=== PATIENT | male | born 1995 | race Caucasian/White ===

== ENCOUNTER 2024-04-23 19:53 | Emergency (ER) | payer SELFPAY ==
[2024-04-23 19:59] VITALS: BP 160/85
[2024-04-23 20:19] VITALS: BP 144/77
[2024-04-23] MEDS: ATIVAN 1 MG PO (20:57)
[2024-04-23 21:13] LABS: % Basophils 0.9 % (0-2); % Eosinophils 2.6 % (0-6); % Immature Granulocytes 0.1 % (0-0.5); % Lymphocytes 24.6 % (20.5-51.1); % Monocytes 13.5 % (1.7-9.3); % Neutrophils 58.3 % (42.2-75.2); Absolute Basophils 0.1 10^3/uL (0-0.2); Absolute Eosinophils 0.2 10^3/uL (0-0.7); Absolute Lymphocytes 1.7 10^3/uL (1.2-3.4); Absolute Monocytes 0.9 10^3/uL (0.1-0.6); Hematocrit 36.3 % (39.0-52.0); Hemoglobin 11.7 g/dL (13.0-18.0); Mean Corp Hgb Conc. 32.2 g/dL (33.0-37.0); Mean Corpuscular Hgb 18.1 pg (27.0-31.0); Mean Corpuscular Volume 56.2 fL (80.0-94.0); Nucleated Red Blood Cells % 0 % (-); Platelet Count 164 10^3/uL (130-400); Red Blood Cell Count 6.46 10^6/uL (4.70-6.10); Red Cell Dist. Width 17.8 % (11.5-14.5); White Blood Cell Count 6.8 10^3/uL (4.8-10.8)
[2024-04-23 21:57] LABS: ALT (SGPT) 19 U/L (0-50); AST (SGOT) 29 U/L (17-59); Albumin 5.3 g/dl (3.5-5.0); Alkaline Phosphatase 57 U/L (38-126); Blood Urea Nitrogen 14 mg/dl (9-20); Calcium 9.3 mg/dl (8.4-10.2); Carbon Dioxide 22 mmol/L (22-30); Chloride 95 mmol/L (98-107); Creatine Phosphokinase 82 U/L (55-170); Glucose 122 mg/dl (70-99); Magnesium 2.3 mg/dl (1.6-2.3); Potassium 3.8 mmol/L (3.5-5.1); Sodium 133 mmol/L (135-145); Total Bilirubin 2.1 mg/dl (0.2-1.3); eGFR > 60.00
[2024-04-23 23:07] LABS: COVID-19 Antigen Negative (Negative)
[2024-04-23] MEDS: TYLENOL 1000 MG PO (23:38)
--- NOTE | 2024-04-23 23:41 | ED.GENMED ---
History of Present Illness
General
Chief Complaint: Anxiety
Source: patient and family
Exam Limitations: none
Time Seen by Provider: 04/23/24 20:32
History of Present Illness
History of Present Illness:
28-year-old male who presents feeling anxious. Patient states started on Wednesday into Wednesday where he started to feel just like he had a restless leg syndrome. He started get kind of achiness in his leg and felt anxious. He states and admits
that he did do psychedelic mushrooms on . He felt actually pretty okay on and Wednesday but last night into today he is just felt anxious and sleep. Admits that he used to do psychedelics maybe monthly in the past a few years back
but had not done them in a while. He is not sure if he still feeling like he is tripping and coming out of it but he thought he was already coming out of it. Admits he vapes. He did recently get a THC pen. No shortness of breath. No fevers. No
vomiting. He denies any other drug use. Mom states his anxiety has been bad at home.
Past History
Past History
ED Past Medical History: Other (ADHD)
Phy Exam
Physical Exam
Physical Exam:
CONSTITUTIONAL Patient alert and oriented to person, place and time. Well-appearing. Vital signs reviewed.
HEAD atraumatic, normocephalic.
EYES eyelids normal to inspection, Extraocular muscles intact, Conjunctiva normal, Sclera normal.
NECK normal range of motion, Trachea midline, no jugular venous distention.
RESPIRATORY CHEST No respiratory distress noted, Chest expansion equal
BACK normal inspection, no obvious deformities
UPPER EXTREMITY range of motion normal, Motor strength normal, no cyanosis, no edema.
LOWER EXTREMITY range of motion normal, Motor strength normal, no cyanosis, no edema.
NEURO Speech normal, No focal motor deficits, [place] coma scale 15, Memory normal, Cranial Nerves intact to screening exam.
SKIN skin warm, dry, and normal in color.
Course
Orders/Labs/Results
Orders:
Orders
04/23/24 20:55
Add On- LAB Urgent
Tests Added?: CPK
Lorazepam [Ativan] 1 mg PO NOW STA
04/23/24 20:59
Complete Blood Count/With Diff Urgent
Comprehensive Metabolic Panel Urgent
Creatine Phosphokinase Urgent
Comment: ADD ON
Magnesium Urgent
04/23/24 21:00
Add On- LAB Urgent
Tests Added?: Mag
04/23/24 22:31
COVID-19 Antigen Urgent
Source: Nasal Swab
Influenza A+B Rapid Molecular Urgent
KATIA Source: Nasal Swab
Specimen Description:
04/23/24 23:35
Acetaminophen [Tylenol] 1,000 mg .ROUTE .STK-MED ONE
04/23/24 23:38
Acetaminophen [Tylenol] 1,000 mg PO NOW STA
Abnormal Lab Results
04/23/24
20:59
RBC 6.46 H 10^6/uL
(4.70-6.10)
Hgb 11.7 L g/dL
(13.0-18.0)
Hct 36.3 L %
(39.0-52.0)
MCV 56.2 L fL
(80.0-94.0)
MCH 18.1 L pg
(27.0-31.0)
MCHC 32.2 L g/dL
(33.0-37.0)
RDW 17.8 H %
(11.5-14.5)
Absolute Monos (auto) 0.9 H 10^3/uL
(0.1-0.6)
Monocytes % 13.5 H %
(1.7-9.3)
Sodium 133 L mmol/L
(135-145)
Chloride 95 L mmol/L
(98-107)
Glucose 122 H mg/dl
(70-99)
Total Bilirubin 2.1 H mg/dl
(0.2-1.3)
Albumin 5.3 H g/dl
(3.5-5.0)
04/23/24 20:59
04/23/24 20:59
Vital Signs
Initial and Last Documented VS:
Initial Vital Signs
Temp Pulse Resp BP Pulse Ox
97.9 F 106 20 160/85 100
04/23/24 19:59 04/23/24 19:59 04/23/24 19:59 04/23/24 19:59 04/23/24 19:59
Last Documented Vital Signs
Temp Pulse Resp BP Pulse Ox
97.9 F 64 16 144/77 99
04/23/24 19:59 04/23/24 20:19 04/23/24 20:19 04/23/24 20:19 04/23/24 21:00
MDM/Problems Addressed
MDM/Problems Addressed:
Anxiety, recent THC use, recent psychedelic use
*Pulse Oximetry
Patient hypoxic: no
*Critical Care Note
Total Time (30-74mins, 75-104mins- exclusive of procedures): Not Applicable
Data Reviewed
Source: patient and family
Prescriptions/Medications Considered But Not Given:
Considered IV Ativan patient quite stable.
Patient Management
Escalation/DeEscalation of care consider admission/obs:
Labs grossly unremarkable with minor changes. Will advise outpatient follow-up. Will provide short course of benzodiazepines and question whether this is related to taking psychedelic recently. I advised stopping THC and obviously avoiding
psychedelics. Patient will follow-up with PCP. Certainly no clinical sign of a cardiac event. CPK normal. No hypoxia. No tachycardia. No fever. He is a little bit anemic. MCV is low for microcytic anemia. Unclear etiology in this otherwise
healthy patient. Did recommend close follow-up. She otherwise is well-appearing and his vital signs are okay.
1206 on reassessment mom states that has thalassemia. Patient's father. Suspect that is the etiology he will follow-up as an outpatient.
ED Attending Note
-
Portions of this chart may have been created with voice recognition software.� Occasional wrong word or��sound alike� substitutions may have occurred due to the inherent limitations of voice recognition software.
Discharge Plan
Departure
Patient Disposition: Home (Routine Discharge)
Date of Disposition: 04/23/24
Time of Disposition: 23:45
Patient with high blood pressure during this ER visit?: No
Discharge Problem:
bodyaches, Anxiety
Instructions: Anxiety, Adult (DC)
Prescriptions:
New
lorazepam 1 mg tablet
1 mg PO TID PRN (Reason: anxiety) Qty: 10 0RF
Referrals:
Bryson Charles MD [Family Provider] -
Activity Restrictions/Additional Instructions:
Please see your doctor in the next 3 to 5 days for follow-up and reevaluation. Please avoid THC or any other illicit substances. Return immediately for worsening symptoms, shortness of breath, chest pain, or any other concerns.
Please have your doctor follow-up on your lab work results showing anemia
Interventions
Interventions:
*Risk Screen - Suicide Last Done: 04/23/24 20:56
*General Assessment Last Done: 04/23/24 20:56
*Neglect/Abuse Screening Last Done: 04/23/24 20:56
*ED COVID-19 Vaccine History Last Done: 04/23/24 20:56
ED-Psychological Assessment Last Done: 04/23/24 21:05
Discharge Date and Time
Print Language: JAPANESE
[2024-04-24] MEDS: ATIVAN 1 MG PO (00:32)
[2024-04-24 00:34] VITALS: BP 133/79
[2024-04-24 00:55] LABS: Iron 81 ug/dl (49-181)
[2024-04-24 02:28] LABS: Percent Saturation 27 % (20-50); Total Iron Binding Capacity 290 ug/dl (261-462)
== END 2024-04-24 00:35 | disposition home or self-care (01) ==
LOC: EMR 19:53
PROVIDERS: Student in an Organized Health Care Education/Training Program; EMERGENCY PHYSICIAN Emergency Medicine; FAMILY PHYSICIAN Family Medicine
DX: M79.10 Myalgia, unspecified site (principal); F41.9 Anxiety disorder, unspecified; G25.81 Restless legs syndrome; F90.9 Attention-deficit hyperactivity disorder, unspecified type
CPT/HCPCS: 99283; 80053; 82550; 83540; 83550; 83735; 85025; 87502; 87811

== ENCOUNTER 2024-04-28 05:50 | Emergency (ER) | payer OTHER, SELFPAY ==
[2024-04-28 05:52] VITALS: BP 132/99
[2024-04-28 06:45] VITALS: BMI 27.0
--- NOTE | 2024-04-28 07:34 | ED.GENMED ---
History of Present Illness
<Sarai Diez, CREDIT AUTHORIZER - Last Filed: 04/28/24 15:17>
General
Chief Complaint: Anxiety
Source: patient and family (mother at bedside pt insists be in room when communicating)
Exam Limitations: none
Time Seen by Provider: 04/28/24 07:08
Nursing documentation reviewed up to this point in time: agreed with
History of Present Illness
History of Present Illness:
28 yo male here for can't sleep past 2 days, poor appetite, generalized achy pains 'all over my body,' restless, staying with mom who requests admission for medication for sleep and a Psyche eval.
Pt was evaluated here 5 days ago for similar symptoms thought to be brought on by eating chocolate with 'mushroom' in it, smoking pot (which he does daily and gets it from same dispensary all the time).
He was discharged with Ativan to help until he saw his PCP which he did and started on Lexapro 10 mg and has had total of two doses. He took Ativan at 8 pm 9:30 p and 12 am this past night with still being unable to sleep. He states 'when I lay down
to sleep my body just can't stay still and I have to move.'
Past History
<Sarai Diez, CREDIT AUTHORIZER - Last Filed: 04/28/24 15:17>
Past History
ED Past Medical History: Other (ADHD)
ED Past Surgical History: None
Social History
Alcohol: Occasional
Drug: Marijuana
Personal: Single
Living: alone (staying with mom recently)
Employment: Employed (IT sales)
Review of Systems
<Sarai Diez, CREDIT AUTHORIZER - Last Filed: 04/28/24 15:17>
Review of Systems
Allergies reviewed?: Yes
All Other Systems: ROS reviewed and negative except as documented in HPI and ROS
Constitutional: Denies fever
Respiratory: Denies trouble breathing
Cardiac: Denies chest pain
ABD/GI: Denies abdominal pain, nausea, vomiting or diarrhea
: Denies dysuria or difficulty voiding
Musculoskeletal: Reports other (Generalized body aches)
Skin: Reports no symptoms
Neurological: Reports no symptoms
Psychiatric: Reports anxiety (Restless, cannot sit still, trouble sleeping, decreased appetite, denies suicidal or homicidal ideation.)
Phy Exam
<Sarai Diez, CREDIT AUTHORIZER - Last Filed: 04/28/24 15:17>
Physical Exam
Physical Exam:
GENERAL: No acute distress. A&Ox3.
CONSTITUTIONAL: Afebrile.
EYES: clear, conjunctivae normal
ENMT: moist mucus membranes
RESPIRATORY: Regular respirations, nonlabored, lungs clear.
CARDIOVASCULAR: Regular rate and rhythm, no murmurs, no rubs.
GI: Soft, nontender
MUSCULOSKELETAL: Moves with ease. Well perfused.
SKIN: Warm, dry, pink
PSYCH: Anxious mood and affect. Well kept, interactive and appropriate
NEUROLOGIC: Awake, alert and oriented. No focal neurological deficits
Course
<Sarai Diez, CREDIT AUTHORIZER - Last Filed: 04/28/24 15:17>
Orders/Labs/Results
Orders:
Orders
04/28/24 07:33
Crisis Consult Urgent
Reason for Consult: can't sleep, eat, restless
04/28/24 08:45
Lorazepam [Ativan] 2 mg PO NOW STA
Vital Signs
Initial and Last Documented VS:
Initial Vital Signs
Temp Pulse Resp BP Pulse Ox
99.0 F 110 14 132/99 99
04/28/24 05:52 04/28/24 05:52 04/28/24 05:52 04/28/24 05:52 04/28/24 05:52
Last Documented Vital Signs
Temp Pulse Resp BP Pulse Ox
99.0 F 110 14 132/99 99
04/28/24 05:52 04/28/24 05:52 04/28/24 05:52 04/28/24 05:52 04/28/24 05:52
Non Morse Intercept Technician consulted with Physician
Non Morse Intercept Technician consulted with physician?: Yes
Name of Physician Consulted: Dr. Saini
<Srinivas Saini DO - Last Filed: 04/28/24 13:04>
Orders/Labs/Results
Orders:
Orders
04/28/24 07:33
Crisis Consult Urgent
Reason for Consult: can't sleep, eat, restless
04/28/24 08:45
Lorazepam [Ativan] 2 mg PO NOW STA
Vital Signs
Initial and Last Documented VS:
Initial Vital Signs
Temp Pulse Resp BP Pulse Ox
99.0 F 110 14 132/99 99
04/28/24 05:52 04/28/24 05:52 04/28/24 05:52 04/28/24 05:52 04/28/24 05:52
Last Documented Vital Signs
Temp Pulse Resp BP Pulse Ox
99.0 F 110 14 132/99 99
04/28/24 05:52 04/28/24 05:52 04/28/24 05:52 04/28/24 05:52 04/28/24 05:52
<Sarai Diez, CREDIT AUTHORIZER - Last Filed: 04/28/24 15:17>
MDM/Problems Addressed
MDM/Problems Addressed:
28 yo male here for can't sleep past 2 days, poor appetite, generalized achy pains 'all over my body,' restless, staying with mom who requests admission for medication for sleep and a Psyche eval.
Pt was evaluated here 5 days ago for similar symptoms thought to be brought on by eating chocolate with 'mushroom' in it, smoking pot (which he does daily and gets it from same dispensary all the time).
He was discharged with Ativan to help until he saw his PCP which he did and started on Lexapro 10 mg and has had total of two doses. He took Ativan at 8 pm 9:30 p and 12 am this past night with still being unable to sleep. He states 'when I lay down
to sleep my body just can't stay still and I have to move.'
Pt denies wanting to hurt himself or others.
Medical workup last week was unremarkable, no change in symptoms. No indication to repeat
Crisis in and gave referrals
Dr. Saini in and requests Ativan 2 mg po now and DC.
Pt has Ativan at home from previous rx last week
Pt mom on phone with PCP requesting who tells her to request admission and Psych consult. Both Quinn Duque and Dr. Saini agree no emergent need for psyche consult and this process and protocol was explained to mom .
Mom states she got a number to call on how to detox from mushrooms she will call.
<Sarai Diez CREDIT AUTHORIZER - Last Filed: 04/28/24 15:17>
*Critical Care Note
Total Time (30-74mins, 75-104mins- exclusive of procedures): Not Applicable
ED Attending Note
<Sarai Diez CREDIT AUTHORIZER - Last Filed: 04/28/24 15:17>
-
Portions of this chart may have been created with voice recognition software.� Occasional wrong word or��sound alike� substitutions may have occurred due to the inherent limitations of voice recognition software.
<Srinivas Saini, - Last Filed: 04/28/24 13:04>
ED Attending Note
Patient seen and examined by attending physician: Yes
I performed the substantive portion of visit, reviewed & personally made and approve the management plan that is documented in note by myself or AIDE.: Yes
Discharge Plan
Departure
Patient Disposition: Home (Routine Discharge)
Date of Disposition: 04/28/24
Time of Disposition: 08:47
Patient with high blood pressure during this ER visit?: No
Condition: Fair
Discharge Problem:
Anxiety
Instructions: Anxiety, Adult (DC)
Prescriptions:
No Action
lorazepam 1 mg tablet
1 mg PO TID PRN (Reason: anxiety) Qty: 10 0RF
escitalopram oxalate [Lexapro] 10 mg Tablet
10 mg PO DAILY
Referrals:
Luh Orona PA-C [Family Provider] - Call in 1-3 days for appt
Activity Restrictions/Additional Instructions:
As we discussed, try getting out and walking in the fresh air or doing some form of physical exercise.
Give the Lexapro time to work.
Make appointment with psychiatrist and psychologist and be sure to go to therapy appointments
Stop all recreational drugs.
Interventions
Interventions:
*Risk Screen - Suicide Last Done: 04/28/24 05:52
*General Assessment Last Done: 04/28/24 06:50
*Neglect/Abuse Screening Last Done: 04/28/24 09:25
ED- Fall Risk Assessment Last Done: 04/28/24 09:25
*ED COVID-19 Vaccine History Last Done: 04/28/24 09:25
*Nursing Disposition Last Done: 04/28/24 09:25
ED-Psychological Assessment Last Done: 04/28/24 09:25
Discharge Date and Time
Discharge Date/Time: 04/28/24 09:25
Print Language: BERMUDIAN
[2024-04-28] MEDS: ATIVAN 2 MG PO (09:16)
== END 2024-04-28 09:25 | disposition home or self-care (01) ==
LOC: EMR 05:50
PROVIDERS: EMERGENCY PHYSICIAN Emergency Medicine; FAMILY PHYSICIAN Physician Assistant Medical
DX: F41.9 Anxiety disorder, unspecified (principal); F12.90 Cannabis use, unspecified, uncomplicated
CPT/HCPCS: 99283